=== PATIENT | male | born 1995 | race Caucasian/White ===

== ENCOUNTER 2017-12-05 17:08 | Observation (INO) | payer OTHER ==
[2017-12-05] MEDS ORDERED: cefTRIAXone 2,000 MG VIAL IM STA (17:32)
--- NOTE | 2017-12-05 17:36 | ED ---
Wound/Laceration HPI - General Chief Complaint: Wound/Laceration Stated Complaint: poss infection middle finger rt hand Time Seen by Provider: 12/05/17 17:30 Source: patient, RN notes reviewed Mode of arrival: ambulatory Limitations: no limitations - History of Present Illness Initial Comments: This is a 21-year-old male no past medical history presenting today for chief complaint of infection of the right middle finger. Patient states that last week he was working got a blister on the medial aspect of his right middle finger. The the blister burst, exposing skin. few days later he began noticing a little bit of redness surrounding blister. The redness has been expanding slowly the past 2 days and his entire finger has swelled from the area of the blister to the base of the digit circumferentially. Patient was worried about infection. Patient denies previous MRSA infection. Patient does admit to chills, and night sweats. He is unsure if he has had a fever. He states that is painful to flex/extend the finger, limited ROM. Remainder of ROS negative. - Related Data Home Medications Medication Instructions Recorded Confirmed No Known Home Medications 12/05/17 12/05/17 Allergies Allergy/AdvReac Type Severity Reaction Status Date / Time No Known Allergies Allergy Verified 12/05/17 18:02 Review of Systems ROS Statement: Those systems with pertinent positive or pertinent negative responses have been documented in the HPI. ROS Other: All systems not noted in ROS Statement are negative. Constitutional: Reports: chills, night sweats. Denies: fever ENT: Denies: ear pain, throat pain Respiratory: Denies: dyspnea, wheezes, hemoptysis, stridor Cardiovascular: Denies: chest pain, palpitations Gastrointestinal: Denies: abdominal pain, nausea, vomiting, diarrhea, constipation Genitourinary: Denies: urgency, dysuria, frequency, hematuria Musculoskeletal: Reports: as per HPI, joint swelling, arthralgia Skin: Reports: as per HPI, pruritus. Denies: rash, lesions Neurological: Denies: headache, weakness, numbness, paresthesias, confusion, abnormal gait Past Medical History Past Medical History: No Reported History History of Any Multi-Drug Resistant Organisms: None Reported Past Surgical History: No Surgical Hx Reported Past Psychological History: No Psychological Hx Reported Smoking Status: Current every day smoker Past Alcohol Use History: Occasional Past Drug Use History: Marijuana General Exam - General Exam Comments Initial Comments: General: The patient is awake and alert, in no distress, and does not appear acutely ill. Eye: Pupils are equal, round and reactive to light, extra-ocular movements are intact. No nystagmus. There is normal conjunctiva bilaterally. No signs of icterus. Ears, nose, mouth and throat: There are moist mucous membranes and no oral lesions. Cardiovascular: There is a regular rate and rhythm. No murmur, rub or gallop is appreciated. Respiratory: Lungs are clear to auscultation, respirations are non-labored, breath sounds are equal. No wheezes, stridor, rales, or rhonchi. Musculoskeletal: At rest pt finger is in slightly flexed positoin. There is fusiform swelling and erythema of the right middle finger that extends from DIP joint to base of MCP. Erythema has small area of streaking down proximal forearm on the dorsal side. Pt has limited ROM at the DIP, PIP and MCP joints of the right middle digit, full ROM of flexion and extension at the remaining 4 digits of the right hand. Strength 5/5 at these joints, however pain is elicited with testing. Sensation intact at the hands b/l including all 5 digits of the right hand. Radial pulses equal bilaterally 2+. Capillary refill <2 seconds. Neurological: A&O x 3. CN II-XII intact, There are no obvious motor or sensory deficits. Coordination appears grossly intact. Speech is normal. Skin: Skin is warm and dry and no rashes. There is a small blister to the medial aspect of the right middle finger, no abscess. Surrounding erythema extends to base of finger, there is streaking over dorsal aspect of the right hand. Psychiatric: Cooperative, appropriate mood & affect, normal judgment. Limitations: no limitations Course Vital Signs 12/05/17 12/05/17 17:22 19:35 Temperature 96.9 F L 97 F L Pulse Rate 86 78 Respiratory 18 20 Rate Blood Pressure 137/76 114/57 O2 Sat by Pulse 98 100 Oximetry Medical Decision Making - Medical Decision Making 21 yo with cc of right middle finger swelling, erythema and decreased ROM concerning for infection flexor tenosynovitis. Pt was evaluated by myself and Dr. Villalobos. Given pt has 4 Kanavel signs; fusiform swelling, finger in flexed position, tenderness over the area of the tendon and there is pain on passive extension of the affected finger, orthopedic surgery, Dr. Parks was consulted for high suspicion of flexor tenosynovitis. Kasey recommended admission to himself with IV vanco and ceftriaxone, and pt NPO for possible surgical intervention. He stated he will evaluate the pt first thing in the morning tmrw. Given pt age and no comorbities he did no recommend medicine consult. Pt had already received 2g IM ceftriaxone therefore next does of ceftriaxone will begin tmrw. CBC, CMP, lactic acid, blood cultures, CRP, ESR obtained. CBC and CMP unremarkable. CRP elevated at 57. Pt VS stable at this time afebrile, HR WNL. Pt appears nontoxic. Pt was transferred to medical surgical unit at 19:50. - Lab Data Result diagrams: 12/05/17 18:45 12/05/17 18:45 Lab Results 12/05/17 12/05/17 12/05/17 Range/Units 18:45 18:45 18:45 WBC 8.8 (4.0-11.0) k/uL RBC 4.14 L (4.30-5.90) m/uL Hgb 12.8 L (13.0-17.5) gm/dL Hct 39.8 (39.0-53.0) % MCV 96.2 (80.0-100.0) fL MCH 31.0 (25.0-35.0) pg MCHC 32.2 (31.0-37.0) g/dL RDW 12.4 (11.5-15.5) % Plt Count 239 (150-450) k/uL Neutrophils % 67 % Lymphocytes % 24 % Monocytes % 5 % Eosinophils % 3 % Basophils % 0 % Neutrophils # 5.9 (1.3-7.7) k/uL Lymphocytes # 2.1 (1.0-4.8) k/uL Monocytes # 0.4 (0-1.0) k/uL Eosinophils # 0.2 (0-0.7) k/uL Basophils # 0.0 (0-0.2) k/uL Sodium 137 (137-145) mmol/L Potassium 3.9 (3.5-5.1) mmol/L Chloride 102 (98-107) mmol/L Carbon Dioxide 26 (22-30) mmol/L Anion Gap 9 mmol/L BUN 26 H (9-20) mg/dL Creatinine 0.70 (0.66-1.25) mg/dL Est GFR (CKD-EPI)AfAm >90 (>60 ml/min/1.73 sqM) Est GFR (CKD-EPI)NonAf >90 (>60 ml/min/1.73 sqM) Glucose 77 (74-99) mg/dL Plasma Lactic Acid Zach 0.9 (0.7-2.0) mmol/L Calcium 9.1 (8.4-10.2) mg/dL Total Bilirubin 0.4 (0.2-1.3) mg/dL AST 22 (17-59) U/L ALT 26 (21-72) U/L Alkaline Phosphatase 71 (38-126) U/L C-Reactive Protein 57.1 H (<10.0) mg/L Total Protein 6.7 (6.3-8.2) g/dL Albumin 4.0 (3.5-5.0) g/dL Disposition Clinical Impression: Infection of flexor tendon sheath Disposition: ADMITTED IP TO THIS HOSP Condition: Stable Is patient prescribed a controlled substance at d/c from ED?: No Referrals: None,Stated [Primary Care Provider] - 1-2 days Time of Disposition: 20:03
[2017-12-05] MEDS ORDERED: cefTRIAXone 1,000 MG VIAL (IM USE) IM STA (17:42)
[2017-12-05] MEDS ORDERED: ONDANSETRON 4 MG/2 ML VIAL IVP PRN (18:36)
[2017-12-05] MEDS ORDERED: NALOXONE 0.4 MG/ML 1 ML VIAL IV PRN (18:36)
[2017-12-05] MEDS ORDERED: HYDROcodone/APAP 5-325MG 1 EACH TAB PO PRN (18:36)
[2017-12-05 19:01] LABS: Basophils % (A) 0 %; Eosinophils # (A) 0.2 k/uL (0-0.7); Eosinophils % (A) 3 %; HCT 39.8 % (39.0-53.0); HGB 12.8 gm/dL (13.0-17.5); Lymphocytes # (A) 2.1 k/uL (1.0-4.8); Lymphocytes % (A) 24 %; MCHC 32.2 g/dL (31.0-37.0); MCV 96.2 fL (80.0-100.0); Mean Platelet Volume 6.3; Monocytes # (A) 0.4 k/uL (0-1.0); Monocytes % (A) 5 %; Neutrophils # (A) 5.9 k/uL (1.3-7.7); Neutrophils % (A) 67 %; Platelet Count 239 k/uL (150-450); RBC 4.14 m/uL (4.30-5.90); RDW 12.4 % (11.5-15.5); WBC 8.8 k/uL (4.0-11.0)
[2017-12-05 19:13] LABS: ALT 26 U/L (21-72); AST 22 U/L (17-59); Alkaline Phosphatase 71 U/L (38-126); Anion Gap 9 mmol/L; Blood Urea Nitrogen 26 mg/dL (9-20); C Reactive Protein 57.1 mg/L (<10.0); Calcium 9.1 mg/dL (8.4-10.2); Carbon Dioxide 26 mmol/L (22-30); Chloride 102 mmol/L (98-107); Glucose 77 mg/dL (74-99); Potassium 3.9 mmol/L (3.5-5.1); Sodium 137 mmol/L (137-145); Total Bilirubin 0.4 mg/dL (0.2-1.3); Total Protein 6.7 g/dL (6.3-8.2)
[2017-12-05] MEDS: SODIUM CHLORIDE 0.9% 1,000 ML IV SCH (19:25)
[2017-12-05] MEDS ORDERED: MORPHINE SULFATE 2 MG/ML SYRINGE IVP STA (19:30)
[2017-12-05] MEDS: VANCOMYCIN 1,500 MG in SODIUM CHLORIDE 0.9% 250 ML IVPB SCH (19:34)
[2017-12-05 20:36] LABS: Erythrocyte Sedimentation Rate 19 mm/hr (0-15)
[2017-12-05] MEDS: ACETAMINOPHEN TAB 325 MG TAB PO PRN (21:24)
[2017-12-06] MEDS: MORPHINE SULFATE 2 MG/ML SYRINGE IVP PRN ×5 (03:52→21:11)
[2017-12-06] MEDS: VANCOMYCIN 1,500 MG in SODIUM CHLORIDE 0.9% 250 ML IVPB SCH ×3 (03:53→20:04)
[2017-12-06] MEDS ORDERED: cefTRIAXone IN SWFI 1,000 MG/10 ML SYRINGE IVP SCH (09:00)
--- NOTE | 2017-12-06 09:00 | P.HPOR ---
History of Present Illness H&P Date: 12/06/17 Chief Complaint: Infection right middle finger. This is a 21-year-old male who presented to the emergency department last evening with infection to his right middle finger. The patient states that he was using a when asked last week and developed a blister about the radial aspect of his right middle finger. He states that the blister resolved but he then developed redness and swelling to the middle finger over the past several days. He tried to express fluid from the area on his own but was unsuccessful. He is admitted to our service for IV antibiotics and possible surgical intervention. Past Medical History Past Medical History: No Reported History History of Any Multi-Drug Resistant Organisms: None Reported Past Surgical History: No Surgical Hx Reported Past Psychological History: No Psychological Hx Reported Smoking Status: Current every day smoker Past Alcohol Use History: Occasional Past Drug Use History: Marijuana - Past Family History Mother Family Medical History: Blood Disorder Additional Family Medical History / Comment(s): Clotting disorder MTHFR. Medications and Allergies Home Medications Medication Instructions Recorded Confirmed Type No Known Home Medications 12/05/17 12/05/17 History Allergies Allergy/AdvReac Type Severity Reaction Status Date / Time No Known Allergies Allergy Verified 12/05/17 20:30 Physical Examination This is a 21-year-old male in no acute distress. He is alert and oriented 3. Exam of the right upper extremity reveals redness and swelling to the right middle finger he is tender about the PIP joint. There is tenderness to the dorsum of the hand. There is no focal tenderness to the palmar aspect. No obvious signs of flexor tendon synovitis. He is able to extend the finger close to full extension. There is a small healing blister about the radial aspect of the middle finger about the PIP joint. Neurovascular status to the upper extremities intact. Results - Labs Labs: Abnormal Lab Results - Last 24 Hours (Table) 12/05/17 12/05/17 Range/Units 18:45 18:45 RBC 4.14 L (4.30-5.90) m/uL Hgb 12.8 L (13.0-17.5) gm/dL ESR 19 H (0-15) mm/hr BUN 26 H (9-20) mg/dL C-Reactive Protein 57.1 H (<10.0) mg/L H & H 12/05/17 Range/Units 18:45 Hgb 12.8 L (13.0-17.5) gm/dL Hct 39.8 (39.0-53.0) % Result Diagrams: 12/05/17 18:45 12/05/17 18:45 Assessment and Plan (1) Infection of finger Current Visit: Yes Status: Acute Code(s): L08.9 - LOCAL INFECTION OF THE SKIN AND SUBCUTANEOUS TISSUE, UNSP SNOMED Code(s): 451231110 Plan: The clinical findings are discussed with the patient. We will give him a full 24 hours on antibiotics and I will order K pad for moist heat. I will ask infectious disease to evaluate patient as well. He'll be nothing by mouth after midnight tonight for possible I&D tomorrow.
[2017-12-06] MEDS: cefTRIAXone IN SWFI 1,000 MG/10 ML SYRINGE IVP SCH (09:11)
[2017-12-06] MEDS: SODIUM CHLORIDE 0.9% 1,000 ML IV SCH (12:21)
[2017-12-06] MEDS: ACETAMINOPHEN TAB 325 MG TAB PO PRN (18:41)
[2017-12-06] MEDS: NICOTINE 21MG/24HR PATCH TRANSDERM SCH (19:33)
[2017-12-06] MEDS ORDERED: DIPH,PERTUS(ACELL)TETVAC-LF 0.5 ML VIAL IM ONE (22:24)
--- NOTE | 2017-12-06 22:24 | P.CONS ---
History of Present Illness - Reason for Consult Consult date: 12/06/17 - Chief Complaint pain right hand - History of Present Illness Matthew 21-year-old chandra relates that he was very active utilizing a pickax when he developed a significant blister to his right hand. This is over the third finger on the palmar surface. Over the following days he manipulated the site and had a scant drainage. On the following day however he developed significant erythema and swelling and decreased ability to use the finger. In the following days continued to worsen and consequently he came home [place] area and his mother brought him to the emergency center because the significant swelling to the right hand third finger, the difficulty with bending the finger and some discomfort that was occurring. There is also some swelling to the hand and some ascending erythema onto the hand itself because when he was admitted. With his infectious process the infectious diseases consultation was requested. The patient received some pain medication and is quite comfortable at this time. He has been evaluated by orthopedics and has been made nothing by mouth for surgical intervention in the morning. Fortunately this time the patient is not having significant fever or chills but does have discomfort in the hand for which elevation and a K pad has been helping the discomfort. Review of Systems Matthew 21-year-old male with no significant medical issues HEENT:Denies headache or acute visual change. Denies sinus or mouth discomforts. Denies neck stiffness or pain. Denies significant oral cavity pain. Denies difficulty on swallowing. Lungs: Denies significant shortness of breath, cough, sputum production, or hemoptysis. Cardiovascular: Denies significant shortness of breath, chest pain, chest wall pain, orthopnea, dyspnea on exertion, syncope Gastrointestinal:Denies nausea, vomiting, diarrhea, constipation, hematemesis, melena, hematochezia. No no significant change of bowel habit noticed. Musculoskeletal: denies significant myalgias or arthralgias. No new joint swelling. Denies new back pain. Skin: Please see the HPI Neuro: Denies headache or visual change. Denies any new onset weakness or difficulty with ambulation. Denies falls or seizures. Psychiatric:Denies anxiety or depression. Endocrine: Denies significant fatigue, denies significant weight loss or weight gain. 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 Denies significant recreational drug use. Many tattoos. No international travel. No experience. No animal exposures. Lives in [place] families from here Smoking Status: Current every day smoker Past Alcohol Use History: Occasional Past Drug Use History: Marijuana - Past Family History Mother Family Medical History: Blood Disorder Additional Family Medical History / Comment(s): Clotting disorder MTHFR. Medications and Allergies Home Medications and Allergies Comment(s): Current Medications Acetaminophen (Tylenol Tab) 650 mg PO Q6HR PRN PRN Reason: Mild Pain or Fever > 100.5 Last Admin: 12/06/17 18:41 Dose: 650 mg Ceftriaxone Sodium (Rocephin) 1,000 mg IVP Q24HR [facility] Last Admin: 12/06/17 09:11 Dose: 1,000 mg Sodium Chloride (Saline 0.9%) 1,000 mls @ 75 mls/hr IV .[id number] [facility] Last Admin: 12/06/17 12:21 Dose: 75 mls/hr Vancomycin HCl 1,500 mg/ (Sodium Chloride) 250 mls @ 125 mls/hr IVPB Q8H [facility] Last Admin: 12/06/17 20:04 Dose: 125 mls/hr Miscellaneous Information (Vancomycin Trough Due) 0 each MISCELLANE DIRECTED ONE Stop: 12/07/17 11:01 Morphine Sulfate (Morphine Sulfate (Inj)) 2 mg IVP Q4HR PRN PRN Reason: Severe Pain Last Admin: 12/06/17 21:11 Dose: 2 mg Naloxone HCl (Narcan) 0.2 mg IV Q2M PRN PRN Reason: Opioid Reversal Nicotine (Habitrol 21mg/24hr Patch) 1 patch TRANSDERM DAILY [facility] Last Admin: 12/06/17 19:33 Dose: 1 patch Ondansetron HCl (Zofran) 4 mg IVP Q8HR PRN PRN Reason: Nausea And Vomiting Home Medications Medication Instructions Recorded Confirmed Type No Known Home Medications 12/05/17 12/05/17 History Allergies Allergy/AdvReac Type Severity Reaction Status Date / Time No Known Allergies Allergy Verified 12/05/17 20:30 Physical Exam Vitals: Vital Signs Temp Pulse Resp BP Pulse Ox 12/06/17 19:22 98.2 F 70 18 129/64 100 12/06/17 14:22 98.2 F 69 16 123/60 99 12/06/17 07:35 98.4 F 69 14 111/64 95 12/06/17 00:40 16 12/06/17 00:30 97.7 F 68 16 102/61 98 Intake and Output 12/06/17 12/06/17 12/06/17 06:59 14:59 22:59 Intake Total 850 Balance 850 Intake: Intake, IV Titration 850 Amount Sodium Chloride 0.9% 1, 600 000 ml @ 75 mls/hr IV . [id number] [facility] Rx#:[id number] Vancomycin 1,500 mg In 250 Sodium Chloride 0.9% 250 ml @ 125 mls/hr IVPB Q8H [facility] Rx#:[id number] Other: Voiding Method Toilet # Voids 2 2 Pleasant 21-year-old male of thin build is not in acute distress HEENT: Anicteric conjunctiva are pink and moist nasal mucosa grossly intact without significant lesions, there is no thrush. Neck: The neck is supple without significant lymphadenopathy or thyromegaly. Lungs: Good bilateral air entry without significant crackles or wheezing. There is no significant bronchial sounds. There is no egophony or dullness. Heart: Regular rate and rhythm with an audible S1-S2, no S3 no S4. There is no significant murmur click or rub, PMI was nondisplaced. Abdomen: Positive bowel sounds soft and nontender without palpable masses or organomegaly. There was no guarding or rebound. Extremities: Left upper extremities intact. Right upper extremities shows in the significant swelling and fluctuant area to the right third finger laterally. There is distinct swelling and erythema. There is some ascending erythema to the volmar aspect of the hand, with some tenderness. Lower extremities without edema. Respiratory skin is without rash or breakdown. Neuro: Awake alert oriented to person place and time. There are no acute new gross focal sensory motor deficits. Results CBC & Chem 7: 12/05/17 18:45 12/05/17 18:45 Labs: Microbiology - Last 24 Hours (Table) 12/05/17 18:45 Blood Culture - Preliminary Blood No Growth after 24 hours Laboratory Results WBC 8.8 k/uL (4.0-11.0) 12/05/17 18:45 RBC 4.14 m/uL (4.30-5.90) L 12/05/17 18:45 Hgb 12.8 gm/dL (13.0-17.5) L 12/05/17 18:45 Hct 39.8 % (39.0-53.0) 12/05/17 18:45 MCV 96.2 fL (80.0-100.0) 12/05/17 18:45 MCH 31.0 pg (25.0-35.0) 12/05/17 18:45 MCHC 32.2 g/dL (31.0-37.0) 12/05/17 18:45 RDW 12.4 % (11.5-15.5) 12/05/17 18:45 Plt Count 239 k/uL (150-450) 12/05/17 18:45 Neutrophils % 67 % 12/05/17 18:45 Lymphocytes % 24 % 12/05/17 18:45 Monocytes % 5 % 12/05/17 18:45 Eosinophils % 3 % 12/05/17 18:45 Basophils % 0 % 12/05/17 18:45 Neutrophils # 5.9 k/uL (1.3-7.7) 12/05/17 18:45 Lymphocytes # 2.1 k/uL (1.0-4.8) 12/05/17 18:45 Monocytes # 0.4 k/uL (0-1.0) 12/05/17 18:45 Eosinophils # 0.2 k/uL (0-0.7) 12/05/17 18:45 Basophils # 0.0 k/uL (0-0.2) 12/05/17 18:45 ESR 19 mm/hr (0-15) H 12/05/17 18:45 Sodium 137 mmol/L (137-145) 12/05/17 18:45 Potassium 3.9 mmol/L (3.5-5.1) 12/05/17 18:45 Chloride 102 mmol/L (98-107) 12/05/17 18:45 Carbon Dioxide 26 mmol/L (22-30) 12/05/17 18:45 Anion Gap 9 mmol/L 12/05/17 18:45 BUN 26 mg/dL (9-20) H 12/05/17 18:45 Creatinine 0.70 mg/dL (0.66-1.25) 12/05/17 18:45 Est GFR (CKD-EPI)AfAm >90 (>60 ml/min/1.73 sqM) 12/05/17 18:45 Est GFR (CKD-EPI)NonAf >90 (>60 ml/min/1.73 sqM) 12/05/17 18:45 Glucose 77 mg/dL (74-99) 12/05/17 18:45 Plasma Lactic Acid Zach 0.9 mmol/L (0.7-2.0) 12/05/17 18:45 Calcium 9.1 mg/dL (8.4-10.2) 12/05/17 18:45 Total Bilirubin 0.4 mg/dL (0.2-1.3) 12/05/17 18:45 AST 22 U/L (17-59) 12/05/17 18:45 ALT 26 U/L (21-72) 12/05/17 18:45 Alkaline Phosphatase 71 U/L (38-126) 12/05/17 18:45 C-Reactive Protein 57.1 mg/L (<10.0) H 12/05/17 18:45 Total Protein 6.7 g/dL (6.3-8.2) 12/05/17 18:45 Albumin 4.0 g/dL (3.5-5.0) 12/05/17 18:45 Microbiology 12/05/17 18:45 Blood Blood Culture - Preliminary No Growth after 24 hours Assessment and Plan (1) Infection of finger Narrative/Plan: 21-year-old male who was performing significant workup with a pick ax with developed a significant blister to the right hand third finger. After some self manipulation the finger became quite swollen and erythematous and then painful. It worsened over several days and was advised to come the hospital. The serum is evidence of an abscess on the lateral aspect of the third finger at the middle interphalangeal joint. There is significant swelling , erythema and some minimal ascending erythema and some swelling onto the hand proper. There is nothing expressible at this point in time. It has been discussed with orthopedics and hopefully over the operative room in the morning for incision and drainage of this abscess site. He does have marked reduced flexion to the left third finger which would bring some concerns to tenosynovitis, although the amount of pain is relatively low which would make that somewhat less likely. He is being updated in his tetanus vaccine. We discussed smoking cessation and how that will impact his wounds in his overall health does allow a nicotine patch. Patient understands that the findings at surgery will help determine needs an antibiotic therapy, if there is deep structure infection he would need a longer course of antibiotics. We will see him after surgery tomorrow. Current Visit: Yes Status: Acute Code(s): L08.9 - LOCAL INFECTION OF THE SKIN AND SUBCUTANEOUS TISSUE, UNSP SNOMED Code(s): 859493550 (2) Cellulitis of right hand Current Visit: Yes Status: Acute Code(s): L03.113 - CELLULITIS OF RIGHT UPPER LIMB SNOMED Code(s): 28093997
[2017-12-07] MEDS: VANCOMYCIN 1,500 MG in SODIUM CHLORIDE 0.9% 250 ML IVPB SCH ×3 (03:23→20:05)
[2017-12-07] MEDS: MORPHINE SULFATE 2 MG/ML SYRINGE IVP PRN ×3 (03:26→11:46)
[2017-12-07] MEDS: SODIUM CHLORIDE 0.9% 1,000 ML IV SCH ×2 (07:30→12:28)
[2017-12-07] MEDS ORDERED: NICOTINE 21MG/24HR PATCH TRANSDERM SCH (09:00)
[2017-12-07] MEDS: NICOTINE 21MG/24HR PATCH TRANSDERM SCH (09:02)
[2017-12-07] MEDS: cefTRIAXone IN SWFI 1,000 MG/10 ML SYRINGE IVP SCH (09:04)
[2017-12-07] MEDS ORDERED: VANCOMYCIN TROUGH DUE 1 EACH MISC MISCELLANE ONE (11:00)
[2017-12-07 11:41] LABS: Anion Gap 8 mmol/L; Blood Urea Nitrogen 17 mg/dL (9-20); Calcium 9.1 mg/dL (8.4-10.2); Carbon Dioxide 28 mmol/L (22-30); Chloride 104 mmol/L (98-107); Glucose 75 mg/dL (74-99); Potassium 4.6 mmol/L (3.5-5.1); Sodium 140 mmol/L (137-145)
[2017-12-07] MEDS: SODIUM CHLORIDE 0.9% 1,000 ML IV ONE ×3 (15:30→23:22)
[2017-12-07] MEDS ORDERED: fentaNYL (PF) 50 MCG/ML 2 ML AMP ONE (17:16)
[2017-12-07] MEDS ORDERED: MIDAZOLAM 2 MG/2 ML VIAL ONE (17:16)
[2017-12-07] MEDS ORDERED: PROPOFOL 10 MG/ML 20 ML VIAL IV ONE (17:16)
[2017-12-07] MEDS ORDERED: ceFAZolin 1,000 MG in SODIUM CHLORIDE 0.9% 1,000 ML IRRIGATION ONE (17:26)
[2017-12-07] MEDS ORDERED: ROPIVACAINE 5 MG/ML 30 ML VIAL MISCELLANE ONE (17:33)
[2017-12-07] MEDS ORDERED: hydrOXYzine PAMOATE 25 MG CAP PO PRN (17:48)
[2017-12-07] MEDS ORDERED: HYDROmorphone 0.5 MG/0.5 ML SYRINGE IVP PRN ×2 (17:48)
[2017-12-07] MEDS ORDERED: HYDROcodone/APAP 5-325MG 1 EACH TAB PO PRN (17:48)
[2017-12-07] MEDS ORDERED: SENNOSIDES-DOCUSATE SODIUM 1 EACH TAB PO PRN (17:48)
[2017-12-07] MEDS ORDERED: diphenhydrAMINE 25 MG CAP PO PRN (17:48)
--- NOTE | 2017-12-07 18:19 | P.OP ---
Date of Procedure: 12/07/17 Procedure(s) Performed: PREOPERATIVE DIAGNOSES: 1. Right middle finger subcutaneous abscess 2. Possible PIP joint involvement of right middle finger POSTOPERATIVE DIAGNOSES: 1. Right middle finger subcutaneous abscess without evidence of joint involvement or flexor tendon involvement PROCEDURES PERFORMED: 1. Right middle finger subcutaneous abscess incision and drainage 2. Packing of wound with iodoform gauze ANESTHESIA: Gen. SENIOR SALES CONSULTANT: Mary Anne Fletcher PA-C (assistance with exposure, hemostasis, retraction, fixation, closure, dressing, splint) COMPLICATIONS: None ESTIMATED BLOOD LOSS: Less than 20 mL. DISPOSITION: To post-anesthesia care unit INDICATIONS: Claudy is a 21-year-old male with a history of infection involving the right middle finger. Evidently approximately 1 week ago he was chopping wood and developed a blister on the radial aspect of the middle finger near the PIP joint. This became infected and he lost the ability to flex his finger and began having calvin infectious symptoms. He has undergone some IV antibiotic treatment but Dr. Soto has advised operative debridement. He presents to the operating room for incision and drainage. Consent has been obtained after discussion of the risks of incision and drainage of this abscess as being inclusive of, but not limited to: Bleeding, further infection, scarring, discomfort, blood vessel and/or nerve damage, compartment syndrome, failure to relieve symptoms, persistence or recurrence and/or worsening of symptoms or problems, need for further surgery, blood clot, pulmonary embolism, , anesthesia risks, and other risks. PROCEDURE: After appropriate consent was obtained, the patient was taken to the operating room placed in the supine position. Anesthesia was initiated, and after confirmation of adequate anesthesia, the patient was carefully positioned. Care was taken to make sure that all pressure points were adequately padded. Prepping and draping were completed in the usual aseptic fashion using ChloraPrep. Timeout was called, confirming patient identity, side , and procedure. Incision approximately 1.5 inches in size was created midline lateral over the radial aspect of the middle finger, centered over the PIP joint. The previous blister was noted and the incision came to within a few millimeters of this puncture wound. Incision was carried down just through skin and into subcu tissues where was noted that there was gross pus just beneath the blister wound. The gross pus was removed by extending the incision and gently spreading down to the abscess cavity. The abscess cavity was probed with hemostat until all areas of the abscess cavity were interrogated. The flexor tendon sheath was not involved and passive movement of the fingers did not express any further pus into the wound cavity. Cultures were taken. Soft tissue tension visibly and palpably improved after drainage of the abscess. Low pressure lavage was used, delivering 1 L of saline within the abscess cavity. During this time, small amount of Hibiclens solution was also applied to the wound surface, allowed to soak into the tissues for 1 minute, and then rinsed off using the lavage. After sterilizing the interior of the wound, the PIP joint was then interrogated with a mid lateral incision just superior to the collateral ligament into the joint. Clear healthy-appearing fluid was able to be noted from the joint, indicating no infection. Subsequently, hemostasis was obtained using pressure. Wound was left open and lightly packed with quarter-inch iodoform gauze and sterile dressing was then applied. Patient tolerated the procedure well and taken to recovery room in stable condition. Sponge counts were correct.
[2017-12-07] MEDS: LACTATED RINGERS 1,000 ML IV SCH (20:06)
[2017-12-07] MEDS: HYDROcodone/APAP 5-325MG 1 EACH TAB PO PRN (22:14)
[2017-12-07] MEDS: HYDROmorphone 1 MG/ML 1 ML SYRINGE IVP PRN (23:27)
[2017-12-08] MEDS: HYDROmorphone 1 MG/ML 1 ML SYRINGE IVP PRN ×2 (01:57→05:33)
[2017-12-08] MEDS: VANCOMYCIN 1,500 MG in SODIUM CHLORIDE 0.9% 250 ML IVPB SCH ×3 (05:34→19:51)
[2017-12-08] MEDS ORDERED: HYDROmorphone 2 MG TAB PO PRN ×2 (05:37)
[2017-12-08] MEDS: SODIUM CHLORIDE 0.9% 1,000 ML IV SCH ×2 (08:37→12:11)
[2017-12-08] MEDS: LACTATED RINGERS 1,000 ML IV SCH ×2 (08:38→12:13)
[2017-12-08] MEDS: HYDROmorphone 4 MG TABLET PO PRN ×5 (08:51→22:37)
[2017-12-08] MEDS: cefTRIAXone IN SWFI 1,000 MG/10 ML SYRINGE IVP SCH (08:51)
[2017-12-08] MEDS: NICOTINE 21MG/24HR PATCH TRANSDERM SCH (08:51)
[2017-12-08 09:10] LABS: Anion Gap 7 mmol/L; Blood Urea Nitrogen 17 mg/dL (9-20); Calcium 8.9 mg/dL (8.4-10.2); Carbon Dioxide 27 mmol/L (22-30); Chloride 105 mmol/L (98-107); Glucose 79 mg/dL (74-99); Potassium 4.7 mmol/L (3.5-5.1); Sodium 139 mmol/L (137-145)
[2017-12-08] MEDS: HYDROcodone/APAP 5-325MG 1 EACH TAB PO PRN ×3 (09:57→23:33)
--- NOTE | 2017-12-08 17:34 | P.PN ---
Subjective Progress Note Date: 12/08/17 Principal diagnosis: S/P I and D right middle finger Patient is seen at bedside this morning. He is POD#1 s/p I and D of right middle finger. He has pain at surgical site as expected. He denies numbness or tingling. He has no new complaints. He denies fever or chills. Objective - Vital Signs Vital signs: Vital Signs Temp 97.9 F 12/08/17 09:03 Pulse 62 12/08/17 09:03 Resp 16 12/08/17 09:03 BP 126/68 12/08/17 09:03 Pulse Ox 100 12/08/17 09:03 Intake & Output 12/07/17 12/08/17 12/08/17 18:59 06:59 18:59 Intake Total 526 3700 Output Total 3 Balance 523 3700 Intake: IV 1 Intake, IV Titration 525 2900 Amount Lactated Ringers 1,000 ml 1600 @ 100 mls/hr IV .Q10H FELISA Rx#:[id number] Sodium Chloride 0.9% 1, 525 800 000 ml @ 75 mls/hr IV . [id number] FELISA Rx#:[id number] Vancomycin 1,500 mg In 500 Sodium Chloride 0.9% 250 ml @ 125 mls/hr IVPB Q8H FELISA Rx#:[id number] Oral 800 Output: Estimated Blood Loss 3 Other: Voiding Method Toilet Toilet Toilet # Voids 3 3 1 - Exam Inspection reveals a benign surgical wound with dressing in place. There is no active bleeding or drainage. Neurovascular status is intact throughout the upper extremity with motor and sensation fully intact through all digits. Calf is soft and nontender. 2+ radial pulse and less than 2 second cap refill is present - Constitutional General appearance: Present: no acute distress - Psychiatric Psychiatric: Present: A&O x's 3, appropriate affect, intact judgment & insight - Labs CBC & Chem 7: 12/05/17 18:45 12/08/17 07:55 Labs: Microbiology - Last 24 Hours (Table) 12/07/17 17:41 Gram Stain - Preliminary Finger - Right Third Wound Culture - Preliminary 12/07/17 17:41 Anaerobic Culture - Preliminary Finger - Right Third 12/05/17 18:45 Blood Culture - Preliminary Blood No Growth after 48 hours Assessment and Plan (1) Infection of finger Narrative/Plan: Continue pain management, wound care and antibiotics per infectious disease. Cultures pending. He may D/C when ok with Dr. Soto. Current Visit: Yes Status: Acute Priority: Medium Code(s): L08.9 - LOCAL INFECTION OF THE SKIN AND SUBCUTANEOUS TISSUE, UNSP SNOMED Code(s): 387574632 Time with Patient: Less than 30
[2017-12-09] MEDS: LACTATED RINGERS 1,000 ML IV SCH ×4 (02:25→23:49)
[2017-12-09] MEDS: HYDROmorphone 4 MG TABLET PO PRN ×6 (02:28→23:48)
[2017-12-09] MEDS: VANCOMYCIN 1,500 MG in SODIUM CHLORIDE 0.9% 250 ML IVPB SCH ×3 (03:46→20:25)
[2017-12-09] MEDS: HYDROcodone/APAP 5-325MG 1 EACH TAB PO PRN ×3 (05:35→18:54)
[2017-12-09] MEDS: NICOTINE 21MG/24HR PATCH TRANSDERM SCH (07:16)
[2017-12-09 08:01] LABS: Anion Gap 6 mmol/L; Blood Urea Nitrogen 16 mg/dL (9-20); Calcium 9.3 mg/dL (8.4-10.2); Carbon Dioxide 32 mmol/L (22-30); Chloride 102 mmol/L (98-107); Glucose 88 mg/dL (74-99); Potassium 5.1 mmol/L (3.5-5.1); Sodium 140 mmol/L (137-145)
--- NOTE | 2017-12-09 10:12 | P.PN ---
Subjective Progress Note Date: 12/09/17 Principal diagnosis: S/P I and D right middle finger Patient is seen at bedside this morning. He is POD#2 s/p I and D of right middle finger. He has pain at surgical site as expected. Cultures have shown presumptive MRSA. Infectious disease is following. He denies numbness or tingling. He has no new complaints. He denies fever or chills. Objective - Vital Signs Vital signs: Vital Signs Temp 97.6 F 12/09/17 07:12 Pulse 72 12/09/17 07:12 Resp 17 12/09/17 07:13 BP 117/58 12/09/17 07:12 Pulse Ox 100 12/09/17 07:12 Intake & Output 12/08/17 12/09/17 12/09/17 18:59 06:59 18:59 Intake Total 1050 Balance 1050 Weight 77.1 kg Intake: Intake, IV Titration 550 Amount Lactated Ringers 1,000 ml 300 @ 100 mls/hr IV .Q10H FELISA Rx#:[id number] Vancomycin 1,500 mg In 250 Sodium Chloride 0.9% 250 ml @ 125 mls/hr IVPB Q8H FELISA Rx#:[id number] Oral 500 Other: Voiding Method Toilet Toilet Toilet # Voids 1 2 1 - Exam Inspection reveals a benign surgical wound. There is no active bleeding or drainage. Neurovascular status is intact throughout the upper extremity with motor and sensation fully intact through all digits. Calves are soft and nontender. 2+ radial pulse and less than 2 second cap refill is present - Constitutional General appearance: Present: no acute distress - Psychiatric Psychiatric: Present: A&O x's 3, appropriate affect, intact judgment & insight - Labs CBC & Chem 7: 12/05/17 18:45 12/09/17 06:57 Labs: Abnormal Lab Results - Last 24 Hours (Table) 12/09/17 Range/Units 06:57 Carbon Dioxide 32 H (22-30) mmol/L Microbiology - Last 24 Hours (Table) 12/05/17 18:45 Blood Culture - Preliminary Blood No Growth after 72 hours 12/07/17 17:41 Gram Stain - Preliminary Finger - Right Third Wound Culture - Preliminary Presumptive MRSA Assessment and Plan (1) Infection of finger Narrative/Plan: Continue pain management, wound care and antibiotics per infectious disease. Cultures have shown MRSA. Pending recommendations from infectious disease he may discharge. Current Visit: Yes Status: Acute Priority: Medium Code(s): L08.9 - LOCAL INFECTION OF THE SKIN AND SUBCUTANEOUS TISSUE, UNSP SNOMED Code(s): 588403138 Time with Patient: Less than 30
[2017-12-09] MEDS ORDERED: VANCOMYCIN TROUGH DUE 1 EACH MISC MISCELLANE ONE (11:00)
[2017-12-10] MEDS: VANCOMYCIN 1,500 MG in SODIUM CHLORIDE 0.9% 250 ML IVPB SCH ×2 (03:09→12:02)
[2017-12-10] MEDS: HYDROcodone/APAP 5-325MG 1 EACH TAB PO PRN ×2 (03:09→10:39)
[2017-12-10] MEDS: HYDROmorphone 4 MG TABLET PO PRN (05:36)
[2017-12-10 08:25] LABS: Anion Gap 13 mmol/L; Blood Urea Nitrogen 16 mg/dL (9-20); Calcium 9.5 mg/dL (8.4-10.2); Carbon Dioxide 24 mmol/L (22-30); Chloride 103 mmol/L (98-107); Glucose 87 mg/dL (74-99); Potassium 4.7 mmol/L (3.5-5.1); Sodium 140 mmol/L (137-145)
[2017-12-10] MEDS: NICOTINE 21MG/24HR PATCH TRANSDERM SCH (08:30)
[2017-12-10 08:36] LABS: Basophils % (A) 0 %; Eosinophils # (A) 0.2 k/uL (0-0.7); Eosinophils % (A) 4 %; HCT 40.1 % (39.0-53.0); Lymphocytes # (A) 1.4 k/uL (1.0-4.8); Lymphocytes % (A) 22 %; MCH 31.1 pg (25.0-35.0); MCHC 32.4 g/dL (31.0-37.0); MCV 95.9 fL (80.0-100.0); Mean Platelet Volume 6.7; Monocytes # (A) 0.4 k/uL (0-1.0); Monocytes % (A) 7 %; Neutrophils # (A) 4.3 k/uL (1.3-7.7); Neutrophils % (A) 65 %; Platelet Count 300 k/uL (150-450); RBC 4.18 m/uL (4.30-5.90); RDW 12.4 % (11.5-15.5); WBC 6.6 k/uL (4.0-11.0)
[2017-12-10 08:40] VITALS: BP 122/74; PULSE 105; RESP 16; TEMP 98.9
--- NOTE | 2017-12-10 13:55 | P.PN ---
Subjective Progress Note Date: 12/10/17 Principal diagnosis: S/P I and D right middle finger Patient is seen at bedside this morning. He is POD#3, S/P I and D of right middle finger. He has pain at surgical site as expected. Cultures have shown MRSA. Infectious disease is following. He denies numbness or tingling. He has no new complaints. He denies fever or chills. Objective - Vital Signs Vital signs: Vital Signs Temp 98.9 F 12/10/17 08:36 Pulse 105 H 12/10/17 08:36 Resp 16 12/10/17 08:36 BP 122/74 12/10/17 08:36 Pulse Ox 99 12/10/17 08:36 Intake & Output 12/09/17 12/10/17 12/10/17 18:59 06:59 18:59 Intake Total 800 1040 Balance 800 1040 Intake: IV 800 Lactated Ringers 1,000 ml 800 @ 100 mls/hr IV .Q10H FELISA Rx#:[id number] Intake, IV Titration 300 Amount Lactated Ringers 1,000 ml 300 @ 100 mls/hr IV .Q10H FELISA Rx#:[id number] Oral 500 240 Other: Voiding Method Toilet Toilet # Voids 1 2 - Exam Inspection reveals a benign surgical wound. There is no active bleeding or drainage. Neurovascular status is intact throughout the upper extremity with motor and sensation fully intact through all digits. Calves are soft and nontender. 2+ radial pulse and less than 2 second cap refill is present - Constitutional General appearance: Present: no acute distress - Labs CBC & Chem 7: 12/10/17 07:33 12/10/17 07:33 Labs: Abnormal Lab Results - Last 24 Hours (Table) 12/10/17 Range/Units 07:33 RBC 4.18 L (4.30-5.90) m/uL Microbiology - Last 24 Hours (Table) 12/07/17 17:41 Gram Stain - Final Finger - Right Third Wound Culture - Final Methicillin resist S. aureus 12/07/17 17:41 Anaerobic Culture - Preliminary Finger - Right Third 12/05/17 18:45 Blood Culture - Preliminary Blood No Growth after 96 hours Assessment and Plan (1) Infection of finger Narrative/Plan: Continue pain management, wound care and antibiotics per infectious disease. Cultures have shown MRSA. Pending recommendations from infectious disease he may discharge. Current Visit: Yes Status: Acute Priority: Medium Code(s): L08.9 - LOCAL INFECTION OF THE SKIN AND SUBCUTANEOUS TISSUE, UNSP SNOMED Code(s): 990881905 Time with Patient: Less than 30
--- NOTE | 2017-12-10 19:23 | PN ---
PROGRESS NOTE DATE OF SERVICE: 12/10/2017. REASON FOR FOLLOWUP: Right middle finger abscess and discharge antibiotic recommendation. INTERVAL HISTORY: The patient is a 21-year-old male who was admitted to the hospital 12/05/2017 with pain, swelling, redness of the right middle finger. Subsequently the patient has been evaluated by Ortho. He was taken to the OR and is status post drainage of a subcutaneous abscess without evidence of joint involvement or flexor tendon involvement. The patient did have cultures obtained which showing MRSA. Blood culture has been negative. The patient has been treated with IV vancomycin. I was asked to see the patient today for recommendation for discharge antibiotic. The patient is currently afebrile. He is currently breathing comfortably. Denies having any chest pain or shortness of breath, cough. The pain to the right middle finger has decreased in intensity. Very minimal drainage. Pain described to more of a dull aching 1 to 2/10, and no radiation. No abdominal pain. No diarrhea. REVIEW OF SYSTEMS: Positive points have been mentioned in HPI. Rest of systems has been negative. His past medical and surgical history were reviewed. No change. Medications were reviewed. EXAMINATION: Blood pressure 122/74 with a pulse of 105, temperature 98.9, he is 99% on room air. General description is a middle aged male up in the chair in no distress. HEENT examination: No pallor or scleral icterus. Oral mucosa membranes are moist. Neck trachea central. No thyromegaly. LUNGS: Unlabored breathing. Clear to auscultation anteriorly. Heart S1, S2. Regular rate and rhythm. Abdomen soft, no tenderness. Extremities: No edema of the feet. Examination of the right hand middle finger, the patient did have a wound with no significant slough tissue. Minimal swelling and erythema. He was able to flex it more than he was on admission with the patient, no foul smelling drainage. Neurological: Patient is awake, alert, oriented times three. Mood and affect normal. LABS: Hemoglobin is 13.2, white count 6.3, BUN of 15, creatinine 0.79. therapeutic 15.6. Blood culture has been negative. DIAGNOSTIC IMPRESSION AND PLAN: Patient with right middle finger abscess, status post OR drainage with no evidence of any joint involvement or flexor tendon. He received about 5 days of IV vancomycin, he will transition to Bactrim DS 1 twice a day for 10 days, script for it sent to the pharmacy. Local wound care with Aquacel Silver packing. Continue supportive care. MMODL / IJN: [id number] /
== END 2017-12-10 15:11 | disposition home or self-care (01) ==
LOC: EC 17:08 → 3SUR 19:04 → EC 19:52
PROVIDERS: ADMIT Orthopaedic Surgery; ATTEND Orthopaedic Surgery
DX: L02.511 Cutaneous abscess of right hand (principal); L03.011 Cellulitis of right finger; B95.62 Methicillin resistant Staphylococcus aureus infection as the cause of diseases classified elsewhere; F17.210 Nicotine dependence, cigarettes, uncomplicated; Z23 Encounter for immunization; Z87.2 Personal history of diseases of the skin and subcutaneous tissue; Z83.2 Family history of diseases of the blood and blood-forming organs and certain disorders involving the immune mechanism
CPT/HCPCS: 99284 ×2; 96365 ×2; 96366 ×5; 96375 ×3; 96372 ×2; 26011; 96376 ×2; 36415; 80053; 80048 ×4; 85652; 83605; 85025 ×2; 80202 ×2; 86140; 87040; 87070; 87205; 87075; 87077; 87186; 90715; G0378 ×6; S4990; J2250; J3370 ×6; J2405; J0690; J0696 ×4; J3010; J2270 ×3; J1170 ×2; J2795; J2704

== ENCOUNTER 2017-12-25 11:36 | Emergency (ER) | payer OTHER ==
[2017-12-25 12:06] VITALS: BP 111/69; PULSE 91; RESP 18; TEMP 98.5
[2017-12-25] MEDS ORDERED: PROPARACAINE 0.5% OPHTH DROPS 15 ML BTL ONE (12:13)
[2017-12-25] MEDS ORDERED: PROPARACAINE 0.5% OPHTH DROPS 15 ML BTL LEFT EYE STA (12:19)
--- NOTE | 2017-12-25 12:38 | ED ---
General Adult HPI - General Chief complaint: Eye Problems Stated complaint: visual disturbance Time Seen by Provider: 12/25/17 12:00 Source: patient, RN notes reviewed Mode of arrival: ambulatory Limitations: no limitations - History of Present Illness Initial comments: This is a 22-year-old male who presents emergency Department complaining of blurred vision of the left eye. Patient states it started on Sunday morning and has progressively got worse. He also is noted that his left eye has become very injected. Patient states he initially thought was a foreign body but since then he hasn't seen anything in his eye and is tried to flush it no relief. Patient states the vision has gotten worse as well as the pain. Patient states she wakes up and there is a little crusting around side. Patient has not noted any significant swelling or redness of the eyelids. Patient denies any trauma or foreign body that he knows of. Patient denies any fever chills. Patient denies any pain with movement of his eye. Patient is up- to-date with his tetanus. - Related Data Home Medications Medication Instructions Recorded Confirmed No Known Home Medications 12/25/17 12/25/17 Allergies Allergy/AdvReac Type Severity Reaction Status Date / Time No Known Allergies Allergy Verified 12/05/17 20:30 Review of Systems ROS Statement: Those systems with pertinent positive or pertinent negative responses have been documented in the HPI. ROS Other: All systems not noted in ROS Statement are negative. Past Medical History Past Medical History: No Reported History History of Any Multi-Drug Resistant Organisms: MRSA Date of last positivie culture/infection: 12/07/17 MDRO Source:: Right third Finger Past Surgical History: No Surgical Hx Reported Additional Past Surgical History / Comment(s): I&D right middle finger Past Psychological History: No Psychological Hx Reported Smoking Status: Current every day smoker Past Alcohol Use History: Occasional Past Drug Use History: Marijuana - Past Family History Mother Family Medical History: Blood Disorder Additional Family Medical History / Comment(s): Clotting disorder MTHFR. General Exam - General Exam Comments Initial Comments: GENERAL Patient is well-developed and well-nourished. Patient is in mild distress. EYES Patient's pupils are equal and round. Extraocular motion is intact. Patient's left eye is injected. I used fluorescein and Wood's lamp to examine the eye there did appear to be of corneal abrasion at about 12:00 spot. I inverted the eyelids and saw no foreign body. SKIN Unremarkable NEURO The patient is alert and oriented 3 PYSCH Patient has normal interpersonal interactions. MUSCULOSKELETAL All 4 extremities full range of motion. Limitations: no limitations Course Vital Signs 12/25/17 12:03 Temperature 98.5 F Pulse Rate 91 Respiratory 18 Rate Blood Pressure 111/69 O2 Sat by Pulse 98 Oximetry Medical Decision Making - Medical Decision Making I spoke with Dr. Garzon and he agreed to see the patient 1:00 today. Disposition Clinical Impression: Corneal abrasion Disposition: HOME SELF-CARE Instructions: Corneal Abrasion (ED) Additional Instructions: Patient should follow-up with Dr. Garzon immediately. Is patient prescribed a controlled substance at d/c from ED?: No Referrals: Mason Garzon MD [STAFF PHYSICIAN] - As Soon As Possible Time of Disposition: 12:36
== END 2017-12-25 13:30 | disposition home or self-care (01) ==
LOC: EC 11:36
DX: S05.02XA Injury of conjunctiva and corneal abrasion without foreign body, left eye, initial encounter (principal); F17.200 Nicotine dependence, unspecified, uncomplicated; Z86.14 Personal history of Methicillin resistant Staphylococcus aureus infection
CPT/HCPCS: 99283

== ENCOUNTER 2018-03-02 20:28 | Emergency (ER) | payer OTHER ==
[2018-03-02 21:00] VITALS: BP 123/73; PULSE 89; RESP 18; TEMP 98.1
[2018-03-02] MEDS ORDERED: PROPARACAINE 0.5% OPHTH DROPS 15 ML BTL RIGHT EYE STA (21:03)
[2018-03-02] MEDS ORDERED: TOBRAMYCIN 0.3% OPHTH OINT 3.5 GM TUBE RIGHT EYE STA (21:40)
--- NOTE | 2018-03-02 21:42 | ED ---
Eye Problem HPI - General Chief complaint: Eye Problems Stated complaint: FB eye Time Seen by Provider: 03/02/18 21:03 Source: patient Mode of arrival: ambulatory Limitations: no limitations - History of Present Illness Initial comments: 22-year-old male patient presents the emergency department today for evaluation of pain and discomfort to the right eye. Patient states that for the last couple of days has been experiencing eye irritation. States he has had clear drainage. Denies any change to his vision. Denies any fevers or chills with this. States his last tetanus vaccine was given within the last year. He is unsure if there may be a foreign body present, but denies working with any flying debris. Patient denies any recent rash, fever, chills, dizziness, headache, or any other complaints. - Related Data Home Medications Medication Instructions Recorded Confirmed No Known Home Medications 12/25/17 12/25/17 Allergies Allergy/AdvReac Type Severity Reaction Status Date / Time No Known Allergies Allergy Verified 03/02/18 21:00 Review of Systems ROS Statement: Those systems with pertinent positive or pertinent negative responses have been documented in the HPI. ROS Other: All systems not noted in ROS Statement are negative. Past Medical History Past Medical History: No Reported History History of Any Multi-Drug Resistant Organisms: MRSA Date of last positivie culture/infection: 12/07/17 MDRO Source:: Right third Finger Past Surgical History: No Surgical Hx Reported Additional Past Surgical History / Comment(s): I&D right middle finger Past Psychological History: No Psychological Hx Reported Smoking Status: Current every day smoker Past Alcohol Use History: Occasional Past Drug Use History: Marijuana - Past Family History Mother Family Medical History: Blood Disorder Additional Family Medical History / Comment(s): Clotting disorder MTHFR. General Exam Limitations: no limitations General appearance: alert, in no apparent distress, other (This is a well- developed, well-nourished adult male patient in no acute distress. Vital signs upon presentation are temperature 98.1F, pulse 89, respirations 18, blood pressure 123/73, pulse ox 99% on room air.) Eye exam: Present: PERRL, EOMI, conjunctival injection (Right-sided), other ( Was able examination with fluorescein stain was performed to the right eye. There was evidence of a tiny abrasion at around 11:00 to the cornea. There is no evidence of hyphema or globe puncture.). Absent: normal appearance, scleral icterus, periorbital swelling ENT exam: Present: normal exam, normal oropharynx, mucous membranes moist Respiratory exam: Present: normal lung sounds bilaterally. Absent: respiratory distress, wheezes, rales, rhonchi, stridor Cardiovascular Exam: Present: regular rate, normal rhythm, normal heart sounds. Absent: systolic murmur, diastolic murmur, rubs, gallop, clicks Neurological exam: Present: alert, oriented X3, CN II-XII intact Psychiatric exam: Present: normal affect, normal mood Skin exam: Present: warm, dry, intact, normal color. Absent: rash Course Vital Signs 03/02/18 20:56 Temperature 98.1 F Pulse Rate 89 Respiratory 18 Rate Blood Pressure 123/73 O2 Sat by Pulse 99 Oximetry Medical Decision Making - Medical Decision Making 22-year-old male patient presented to the emergency department today for evaluation of right eye irritation discomfort. [place] lamp examination with fluorescein stain was performed and showed no evidence of a tiny abrasion to around 11:00 on the cornea. Patient was given tobramycin ointment to take home. He is instructed to follow-up with ophthalmology symptoms aren't improving over the next 1-2 days. Return parameters discussed in detail. He verbalizes understanding and agrees with this plan. Disposition Clinical Impression: Right corneal abrasion Disposition: HOME SELF-CARE Condition: Good Instructions: Tobramycin (Into the eye), Corneal Abrasion (ED) Additional Instructions: Use ointment in eye 4 times daily while awake. Follow up with ophthalmology if symptoms do not improve by Sunday. Return immediately for any new, worsening, or concerning symptoms. Is patient prescribed a controlled substance at d/c from ED?: No Referrals: None,Stated [Primary Care Provider] - 1-2 days Time of Disposition: 21:42
== END 2018-03-02 21:49 | disposition home or self-care (01) ==
LOC: EC 20:28
DX: S05.01XA Injury of conjunctiva and corneal abrasion without foreign body, right eye, initial encounter (principal); F17.200 Nicotine dependence, unspecified, uncomplicated; Z86.14 Personal history of Methicillin resistant Staphylococcus aureus infection
CPT/HCPCS: 99283

== ENCOUNTER 2018-08-26 07:14 | Emergency (ER) | payer OTHER ==
[2018-08-26 07:19] VITALS: BP 165/102; PULSE 88; RESP 18
[2018-08-26] MEDS ORDERED: BUPIVACAINE-EPI 0.5%-1:200,000 10 ML VIAL SQ STA (07:26)
--- NOTE | 2018-08-26 07:28 | ED ---
ENT HPI - General Chief complaint: Dental/Oral Stated complaint: dental pain Time Seen by Provider: 08/26/18 07:23 Source: patient, RN notes reviewed Mode of arrival: ambulatory Limitations: no limitations - History of Present Illness Initial comments: 22-year-old male presents emergency Department with chief complaint of left lower dental pain. He's had on-and-off issues for last 1 year but worse in the last few days. Patient states pain is severe and radiates anywhere on side of his face. Patient states that he has a bad tooth is not seen a dentist for any help. Patient reports no fever no chills no facial swelling. Denies any trismus. Denies any difficulty swallowing. Patient states she has not taken any recent Tylenol Motrin. - Related Data Previous Rx's Medication Instructions Recorded Ibuprofen [Motrin] 600 mg PO Q8HR PRN #30 tab 08/26/18 Penicillin V Potassium [Pen Vee K] 500 mg PO QID #40 tablet 08/26/18 Allergies Allergy/AdvReac Type Severity Reaction Status Date / Time No Known Allergies Allergy Verified 08/26/18 07:44 Review of Systems ROS Statement: Those systems with pertinent positive or pertinent negative responses have been documented in the HPI. ROS Other: All systems not noted in ROS Statement are negative. Past Medical History Past Medical History: No Reported History History of Any Multi-Drug Resistant Organisms: MRSA Date of last positivie culture/infection: 12/07/17 MDRO Source:: Right third Finger Past Surgical History: No Surgical Hx Reported Additional Past Surgical History / Comment(s): I&D right middle finger Past Psychological History: No Psychological Hx Reported Smoking Status: Current every day smoker Past Alcohol Use History: Occasional Past Drug Use History: Marijuana - Past Family History Mother Family Medical History: Blood Disorder Additional Family Medical History / Comment(s): Clotting disorder MTHFR. General Exam Limitations: no limitations General appearance: alert, in no apparent distress Head exam: Present: atraumatic, normocephalic, normal inspection Eye exam: Present: normal appearance, PERRL, EOMI. Absent: scleral icterus, conjunctival injection, periorbital swelling ENT exam: Present: mucous membranes moist, TM's normal bilaterally, normal external ear exam. Absent: normal oropharynx (Dental Briana, dental fracture left lower no drainable abscess noted) Neck exam: Present: normal inspection, full ROM. Absent: tenderness, meningismus, lymphadenopathy Respiratory exam: Present: normal lung sounds bilaterally. Absent: respiratory distress, wheezes, rales, rhonchi, stridor Cardiovascular Exam: Present: regular rate, normal rhythm, normal heart sounds. Absent: systolic murmur, diastolic murmur, rubs, gallop, clicks Neurological exam: Present: alert Skin exam: Present: warm, dry, intact, normal color. Absent: rash Course Vital Signs 08/26/18 07:18 Pulse Rate 88 Respiratory 18 Rate Blood Pressure 165/102 O2 Sat by Pulse 100 Oximetry Procedures - Nerve Block Consent Obtained: verbal consent Local Anesthetic Used: MARCAINE 0.5% with EPI Amount of anesthesia used: 2 Side: left Intraoral Nerve Block: inferior alveolar Procedure Successful: Yes Complications: none Patient Tolerated Procedure: well, no complications Medical Decision Making - Medical Decision Making 22-year-old male presented for left lower dental pain. Patient has a dental infection. Patient we started on Penicillin VK, given Tylenol codeine and ibuprofen. Patient was given dental block emergency Department which helped his pain. Patient will follow-up with the dental clinic or known tenderness. Return parameters were discussed. Disposition Clinical Impression: Fracture of tooth, Dental infection Disposition: HOME SELF-CARE Condition: Stable Instructions (If sedation given, give patient instructions): Toothache (ED) Additional Instructions: Please return to the Emergency Department if symptoms worsen or any other concerns.Please follow up with the [facility] dental clinic. [facility] [employer] [place] [address]. Phone number for new patients or [phone] for existing patients. Prescriptions: Ibuprofen [Motrin] 600 mg PO Q8HR PRN #30 tab PRN Reason: Pain Penicillin V Potassium [Pen Vee K] 500 mg PO QID #40 tablet Is patient prescribed a controlled substance at d/c from ED?: No Referrals: None,Stated [Primary Care Provider] - 1-2 days Time of Disposition: 08:15
[2018-08-26] MEDS ORDERED: BUPIVACAIN-EPI 0.25%-1:200,000 30 ML VIAL SQ STA (07:58)
[2018-08-26] MEDS ORDERED: ACET/COD 300 MG/30 MG STARTER PACK 6 TAB BTL PO STA (08:16)
== END 2018-08-26 08:25 | disposition home or self-care (01) ==
LOC: EC 07:14
DX: S02.5XXA Fracture of tooth (traumatic), initial encounter for closed fracture (principal); K04.7 Periapical abscess without sinus; F17.200 Nicotine dependence, unspecified, uncomplicated; Z86.14 Personal history of Methicillin resistant Staphylococcus aureus infection
CPT/HCPCS: 64400; 99282